=== PATIENT | female | born 1985 | race Caucasian/White ===

== ENCOUNTER 2020-07-15 12:04 | Emergency (ER) | payer OTHER ==
[~2020-07-15 12:04] MED LIST: FLONASE ALLER15.8 ML; LODINE400 MG PO; ROBAXIN500 MG PO; TESSALON PERLE100 MG PO
[2020-07-15 13:40] LABS: COLOR ORANGE (YELLOW)
[2020-07-15 13:42] LABS: CLARITY HAZY (CLEAR)
[2020-07-15 13:57] LABS: URINARY WBC 20-50
[2020-07-15 13:58] LABS: BACTERIA TRACE
[2020-07-15] MEDS ORDERED: ZESTRIL5 MG PO (16:29)
== END 2020-07-15 16:34 | disposition home or self-care (01) ==
LOC: FER 12:04
PROVIDERS: Emergency Medicine
DX: A59.9 Trichomoniasis, unspecified (principal); I10 Essential (primary) hypertension; Z88.6 Allergy status to analgesic agent; Z79.899 Other long term (current) drug therapy
CPT/HCPCS: 81001; 99283; J0696

== ENCOUNTER 2020-09-19 15:41 | Emergency (ER) | payer OTHER ==
[~2020-09-19 15:41] MED LIST changes: +ZESTRIL5 MG PO
[2020-09-19 17:10] LABS: BASOPHIL 0.4 % (0-2); EOSINOPHIL 0.6 % (0-5); HCT 38.3 % (37.0-47.0); HGB 12.8 g/dl (12.5-16.0); LYMPHOCYTE 14.5 % (15-48); MCH 33.1 pg (25.0-31.0); MCHC 33.4 g/dL (32.0-36.0); MONOCYTE 7.3 % (0-12); MPV 10.2 fL (6.0-9.5); NEUTROPHIL 76.9 % (41-80); NRBC 0; PLT 206 K/uL (150-400); RBC 3.87 M/uL (4.20-5.40); RDW 13.6 % (11.5-14.0); WBC 6.8 K/uL (4.0-10.5)
[2020-09-19 17:16] LABS: BILIRUBIN NEGATIVE (NEGATIVE); BLOOD NEGATIVE Ery/uL (NEGATIVE); CLARITY CLEAR (CLEAR); COLOR YELLOW (YELLOW); GLUCOSE (U) NORMAL (NORMAL); LEUKOCYTES 1+ Leu/uL (NEGATIVE); NITRITE NEGATIVE (NEGATIVE); PROTEIN NEGATIVE (NEGATIVE); SPECIFIC GRAVITY 1.015 (1.001-1.030); UROBILINOGEN 0.2 mg/dL (0.2-1.0)
[2020-09-19 17:20] LABS: CREATININE 0.46 mg/dL (0.51-0.95); POTASSIUM 4.4 mmol/L (3.5-5.1)
[2020-09-19 17:35] LABS: BACTERIA 2+
[2020-09-19] MEDS ORDERED: MEDROL 4MG DOSEP4 MG PO (19:51)
[2020-09-19] MEDS ORDERED: CYCLOBENZAPRINE10 MG PO (19:51)
[2020-09-19] MEDS ORDERED: ZESTRIL5 MG PO (19:51)
[2020-09-19] MEDS ORDERED: MACROBID100 MG PO (19:52)
== END 2020-09-19 20:20 | disposition home or self-care (01) ==
LOC: FER 15:41
PROVIDERS: Nurse Practitioner Family
DX: N39.0 Urinary tract infection, site not specified (principal); M62.830 Muscle spasm of back; I10 Essential (primary) hypertension; Z88.5 Allergy status to narcotic agent
CPT/HCPCS: 36415; 80048; 81001; 85025; J1100; J1885; J2405